=== PATIENT | male | born 1950 | race Caucasian/White ===

== ENCOUNTER 2021-11-02 21:40 | Emergency (ER) | payer OTHER ==
[~2021-11-02] VITALS: Ht 157.5 cm; Wt 74.4 kg
[2021-11-02 21:40] VITALS: BP 150/80
[2021-11-03] MEDS ORDERED: ACETAMINOPHEN 325 MG TAB PO ONE (01:40)
[2021-11-03] MEDS ORDERED: ACETAMINOPHEN 325 MG TAB ONE (01:46)
[2021-11-03] MEDS ORDERED: KETOROLAC 30 MG/ML VIAL IM ONE (02:10)
[2021-11-03 02:29] LABS: BASOPHILS % (AUTO) 0.4 % (0.0-2.0); EOSINOPHILS # (AUTO) 0.2 K/uL (0-0.4); EOSINOPHILS % (AUTO) 2.4 % (0.0-4.0); HEMATOCRIT 37.3 % (36-52); LYMPHOCYTES # (AUTO) 1.2 K/uL (2.0-11.5); LYMPHOCYTES % (AUTO) 14.4 % (20.5-51.1); MEAN CORPUSCULAR HEMOGLOBIN 28 pg (27-31); MEAN CORPUSCULAR HGB CONC 32 g/dL (33-37); MEAN CORPUSCULAR VOLUME 88.2 fL (80-94); MONOCYTES # (AUTO) 0.8 K/uL (0.8-1.0); NEUTROPHILS % (AUTO) 72.8 % (42.2-75.2); PLATELET COUNT (AUTO) 210 K/uL (140-450); RED BLOOD CELL COUNT(AUTO) 4.23 MIL/uL (4.20-6.10); RED CELL DISTRIBUTION WIDTH 14.7 % (11.6-13.7); WHITE BLOOD COUNT (AUTO) 8.3 K/uL (4.8-10.8)
[2021-11-03 02:29] LABS: APPEARANCE,URINE CLEAR (CLEAR); BILIRUBIN,URINE NEGATIVE (NEGATIVE); BLOOD, URINE TRACE-I (NEGATIVE); COLOR,URINE YELLOW (YELLOW); LEUKOCYTE ESTERASE ,URINE NEGATIVE (NEGATIVE); NITRITE, URINE NEGATIVE (NEGATIVE); UGLUCOSE NEGATIVE (NEGATIVE)
[2021-11-03 02:43] LABS: ANION GAP 11.3 (8-16); CARBON DIOXIDE 25.2 mmol/L (21-32); CHLORIDE 110 mmol/L (98-107); CREATININE 1.1 mg/dL (0.6-1.3); GLUCOSE 90 mg/dL (74-106); POTASSIUM 3.5 mmol/L (3.5-5.1); SODIUM SERUM 143 mmol/L (136-145); UREA NITROGEN, BLOOD 27 mg/dL (7-18)
[2021-11-03 02:49] LABS: RBC,URINE 0-5 /HPF (0-5); WBC,URINE 0-5 /HPF (0-5)
[2021-11-03 03:10] VITALS: BP 140/70
== END 2021-11-03 04:30 | disposition home or self-care (01) ==
LOC: MED 21:40
DX: S39.012A Strain of muscle, fascia and tendon of lower back, initial encounter (principal); Z88.2 Allergy status to sulfonamides; W18.30XA Fall on same level, unspecified, initial encounter; Y93.89 Activity, other specified; Y92.89 Other specified places as the place of occurrence of the external cause; Y99.8 Other external cause status
CPT/HCPCS: 36415; 70450; 73060; 80048; 81001; 85025; 99285

== ENCOUNTER 2022-03-23 05:00 | Observation (INO) | payer OTHER ==
[~2022-03-23] VITALS: Ht 154.9 cm; Wt 86.2 kg
--- NOTE | 2022-03-23 05:04 | NUR ---
PT MAKENNA ALS. TAKEN TO BED 10
[2022-03-23] MEDS ORDERED: NACL 0.9% 1,000 ML IV ONE ×2 (05:05→08:40)
--- NOTE | 2022-03-23 05:10 | NUR ---
Dr. Castillo examining patient.
--- NOTE | 2022-03-23 05:12 | NUR ---
Given two orange juice , patient A/O,X4, able to swallow and drink.
--- NOTE | 2022-03-23 05:14 | NUR ---
Given D50% 50 ML IV push stat by Dr. Castillo.
--- NOTE | 2022-03-23 05:22 | NUR ---
X-Ray at bedside.
[2022-03-23] MEDS ORDERED: DEXTROSE 50% 50 ML SYR IVP ONE ×2 (05:28→05:35)
[2022-03-23] MEDS ORDERED: ATOR10TA PO (05:29)
[2022-03-23] MEDS ORDERED: NIFE30TE5 PO (05:29)
[2022-03-23] MEDS ORDERED: GABA250S1 PO (05:29)
[2022-03-23] MEDS ORDERED: ASPI-1822 PO (05:29)
[2022-03-23] MEDS ORDERED: METF-350 PO (05:29)
[2022-03-23] MEDS ORDERED: TAMS0.4C96 PO (05:29)
[2022-03-23] MEDS ORDERED: GLIP5TER PO (05:29)
[2022-03-23 05:30] VITALS: BP 192/69
[2022-03-23] MEDS ORDERED: DEXTROSE 10% 250 ML IV SCH (05:35)
--- NOTE | 2022-03-23 05:37 | NUR ---
72 YO M BIBA FROM HOME WITH C/C OF ALOC. STATES PT ROLLED OUT OF BED PER AND WAS ALTERED. EMS STATES BLOOD SUGAR ON SCENE 37, THEY GAVE 1G OF GLUCAGON IM. ON ARRIVAL PT WAS AWAKE AND ALERT, BLOOD SUGAR 29. PT GIVEN PO ORANGE JUICE, IV 20G TO RT UPPER ARM STARTED, GIVEN D50 IVP. REPEAT BS 198. HX:DM, HTN, HYPERLIDIEMIA RX:GLIPIZIDE, METFORMIN, NIFEDIPINE, ASA, GABAPENTIN, FLOMAX
--- NOTE | 2022-03-23 05:50 | NUR ---
VERBAL ORDER FROM GEORGIANA RODRIGUEZ TORADOL 15MG IVP.
[2022-03-23] MEDS ORDERED: KETOROLAC 15 MG/ML VIAL ONE (05:56)
--- NOTE | 2022-03-23 05:58 | NUR ---
PT C/O OF HIP PAIN AND LEFT LEG CRAMPING. ERMD MADE AWARE.
[2022-03-23 05:59] LABS: BILIRUBIN,URINE NEGATIVE (NEGATIVE); BLOOD, URINE 1+ (NEGATIVE); COLOR,URINE YELLOW (YELLOW); LEUKOCYTE ESTERASE ,URINE TRACE (NEGATIVE); NITRITE, URINE POSITIVE (NEGATIVE); PH,URINE 6.5 (5.0-9.0); UGLUCOSE TRACE (NEGATIVE)
--- NOTE | 2022-03-23 06:04 | NUR ---
UNABLE TO OBTAIN LABS, MULTIPLE NURSES TRIED. LAB MADE AWARE.
--- NOTE | 2022-03-23 06:08 | NUR ---
LAB AT BEDSIDE
[2022-03-23 06:15] LABS: APPEARANCE,URINE SLIGHTLY HAZY (CLEAR)
[2022-03-23 06:17] LABS: RBC,URINE NONE SEEN /HPF (0-5); WBC,URINE 16-25 (MOD) /HPF (0-5)
[2022-03-23] MEDS ORDERED: cefTRIAXone 1,000 MG VIAL ONE (06:32)
--- NOTE | 2022-03-23 07:20 | NUR ---
REPORT GIVEN TO VICTORIANO FLORENCE. TRANSFER OF CARE.
[2022-03-23 08:16] LABS: BASOPHILS % (AUTO) 0.2 % (0.0-2.0); EOSINOPHILS % (AUTO) 0.3 % (0.0-4.0); HEMATOCRIT 37.4 % (36-52); HEMOGLOBIN 12.3 g/dL (12.0-18.0); LYMPHOCYTES # (AUTO) 0.8 K/uL (2.0-11.5); LYMPHOCYTES % (AUTO) 5.3 % (20.5-51.1); MEAN CORPUSCULAR HEMOGLOBIN 30 pg (27-31); MEAN CORPUSCULAR HGB CONC 33 g/dL (33-37); MEAN CORPUSCULAR VOLUME 90.6 fL (80-94); MONOCYTES # (AUTO) 0.9 K/uL (0.8-1.0); MONOCYTES % (AUTO) 6.3 % (1.7-9.3); NEUTROPHILS # (AUTO) 12.8 K/uL (1.8-7.7); NEUTROPHILS % (AUTO) 87.9 % (42.2-75.2); PLATELET COUNT (AUTO) 259 K/uL (140-450); RED BLOOD CELL COUNT(AUTO) 4.13 MIL/uL (4.20-6.10); WHITE BLOOD COUNT (AUTO) 14.5 K/uL (4.8-10.8)
[2022-03-23 08:30] LABS: ANION GAP 13.5 (8-16); ASPARTATE AMINOTRANSFERASE 20 U/L (15-37); CARBON DIOXIDE 27.1 mmol/L (21-32); CHLORIDE 108 mmol/L (98-107); GLUCOSE 108 mg/dL (74-106); POTASSIUM 3.6 mmol/L (3.5-5.1); SODIUM SERUM 145 mmol/L (136-145); TOTAL BILIRUBIN 0.2 mg/dL (0.0-1.0); UREA NITROGEN, BLOOD 23 mg/dL (7-18)
[2022-03-23] MEDS ORDERED: ACETAMINOPHEN 325 MG TAB PO PRN (09:45)
[2022-03-23] MEDS ORDERED: KCL 20 MEQ/WATER INJ PREMIX 200 ML IV PRN (09:45)
[2022-03-23] MEDS ORDERED: HYDROcodone/APAP 5/325 MG 1 TAB TAB PO PRN (09:45)
[2022-03-23] MEDS ORDERED: ONDANSETRON 4 MG/2 ML VIAL IVP PRN (09:45)
[2022-03-23] MEDS ORDERED: MAG SULF 2000 MG/WATER PREMIX 50 ML IV PRN (09:45)
[2022-03-23] MEDS ORDERED: ZOLPIDEM 5 MG TAB PO PRN (09:45)
[2022-03-23] MEDS ORDERED: POTASSIUM CHLORIDE 10 MEQ TABER PO PRN (09:45)
[2022-03-23] MEDS: NIFEdipine 60 MG TABER PO SCH (10:30)
[2022-03-23] MEDS: ATORVASTATIN 80 MG TAB PO SCH (10:30)
--- NOTE | 2022-03-23 20:00 | NUR ---
Patient has skin tear left hand, not bleeding, covered with gauze. Printer not working to print wound picture.
--- NOTE | 2022-03-23 20:07 | NUR ---
Patient lying in bed, A/Ox4, chest rise and fall symmetrical, no c/o pain or s/s of discomfort. Addendum: 03/23/22 at 2226 by [email or web address] Patient lying in bed, A/Ox3, chest rise and fall symmetrical, no c/o pain or s/s of distress.
--- NOTE | 2022-03-23 22:26 | NUR ---
Patient lying in bed, A/Ox3, chest rise and fall symmetrical, no c/o pain or s/s of distress.
--- NOTE | 2022-03-24 00:58 | NUR ---
Patient lying in bed, A/Ox3, chest rise and fall symmetrical, no c/o pain or s/s of distress.
--- NOTE | 2022-03-24 02:30 | NUR ---
Patient lying in bed, A/Ox3, chest rise and fall symmetrical, no c/o pain or s/s of distress.
--- NOTE | 2022-03-24 04:01 | NUR ---
Patient lying in bed, A/Ox3, chest rise and fall symmetrical, no c/o pain or s/s of distress.
--- NOTE | 2022-03-24 06:20 | NUR ---
Patient lying in bed, A/Ox3, chest rise and fall symmetrical, no c/o pain or s/s of distress.
--- NOTE | 2022-03-24 07:09 | NUR ---
Patient refused lab draw.
--- NOTE | 2022-03-24 07:10 | NUR ---
Change of shift report given to AM shift nurse Belle PASTRANA. AM shift nurse Belle RN verbalized understanding of report, no further questions.
[2022-03-24] MEDS ORDERED: TAMSULOSIN 0.4 MG CAP PO SCH (08:30)
--- NOTE | 2022-03-24 08:30 | NUR ---
Patient will be admitted to care of DR DEL VALLE. Admited to TELEMETRY. Will go to room ICU 6 FOR HOUSE CONVEIENCE. Belongings list completed. Report to VICTORIANO.
--- NOTE | 2022-03-24 08:35 | NUR ---
Admission Pt AOx3, in no signs of distress on room air. Pt states no pain at this time. IV site intact, patent, no infiltration noted. Situated pt to bed and call light.
--- NOTE | 2022-03-24 08:54 | NUR ---
Attempted to call x2 pt's Deysi Alarcon to inform of admission. Unable to leave voicemail.
[2022-03-24] MEDS ORDERED: ENOXAPARIN 40 MG/0.4 ML SYR SUBQ SCH (09:00)
[2022-03-24] MEDS ORDERED: ASPIRIN 81 MG TAB.CHEW PO SCH (09:00)
--- NOTE | 2022-03-24 09:37 | NUR ---
PATIENT HAS BEEN SCREENED AND CATEGORIZED MODERATE NUTRITION RISK. PATIENT WILL BE SEEN WITHIN 3-5 DAYS OF ADMISSION. 03/26/2212/12/[address]
[2022-03-24 09:51] LABS: BASOPHILS # (AUTO) 0.1 K/uL (0.00-0.22); BASOPHILS % (AUTO) 0.7 % (0.0-2.0); EOSINOPHILS # (AUTO) 0.5 K/uL (0-0.4); EOSINOPHILS % (AUTO) 5.1 % (0.0-4.0); HEMATOCRIT 39.2 % (36-52); HEMOGLOBIN 12.9 g/dL (12.0-18.0); LYMPHOCYTES # (AUTO) 0.9 K/uL (2.0-11.5); LYMPHOCYTES % (AUTO) 9.1 % (20.5-51.1); MEAN CORPUSCULAR HEMOGLOBIN 30 pg (27-31); MEAN CORPUSCULAR HGB CONC 33 g/dL (33-37); MEAN CORPUSCULAR VOLUME 90.7 fL (80-94); MONOCYTES # (AUTO) 0.9 K/uL (0.8-1.0); MONOCYTES % (AUTO) 9.1 % (1.7-9.3); NEUTROPHILS # (AUTO) 7.8 K/uL (1.8-7.7); PLATELET COUNT (AUTO) 253 K/uL (140-450); RED BLOOD CELL COUNT(AUTO) 4.32 MIL/uL (4.20-6.10); RED CELL DISTRIBUTION WIDTH 13.7 % (11.6-13.7); WHITE BLOOD COUNT (AUTO) 10.3 K/uL (4.8-10.8)
--- NOTE | 2022-03-24 10:00 | NUR ---
Spoke with pt's Deysi Alarcon regarding pt's status and updates, per pt's request.
[2022-03-24 10:06] LABS: CARBON DIOXIDE 25.9 mmol/L (21-32); CHLORIDE 109 mmol/L (98-107); GLUCOSE 127 mg/dL (74-106); POTASSIUM 3.9 mmol/L (3.5-5.1); SODIUM SERUM 144 mmol/L (136-145); UREA NITROGEN, BLOOD 21 mg/dL (7-18)
[2022-03-24] MEDS ORDERED: GLIP5TAB13 PO (10:14)
[2022-03-24] MEDS ORDERED: NIFE60TA39 PO (10:14)
[2022-03-24] MEDS ORDERED: ASPI81CT95 PO (10:14)
[2022-03-24] MEDS ORDERED: CIPR250T6 PO ×2 (10:19→10:36)
[2022-03-24] MEDS: ATORVASTATIN 80 MG TAB PO SCH (10:21)
[2022-03-24] MEDS: NIFEdipine 60 MG TABER PO SCH (10:22)
[2022-03-24 13:19] VITALS: BP 152/80
--- NOTE | 2022-03-24 13:40 | NUR ---
Discharge Pt seen and medically cleared by Dr. Shipley. Pt given discharge instructions including prescriptions. Pt verbalize understanding. Removed IV catheter, tip intact, bleeding controlled. Pt states to dispose of soiled and cut clothes, new clothes given to pt for discharge. Informed pt's Deysi regarding discharge and need for assistance when pt returns home. Pt also refused to receive vaccinations despite education and verbalizes understanding. Pt brought home by auto.
== END 2022-03-24 14:00 | disposition home or self-care (01) ==
LOC: MED 05:00 → MTU 09:47 → MIC 03-24 06:25
PROVIDERS: ADMIT Internal Medicine; ATTEND Internal Medicine
DX: A41.9 Sepsis, unspecified organism (principal); Z20.822 Contact with and (suspected) exposure to COVID-19; R65.20 Severe sepsis without septic shock; N39.0 Urinary tract infection, site not specified; E11.649 Type 2 diabetes mellitus with hypoglycemia without coma; Z79.899 Other long term (current) drug therapy
CPT/HCPCS: 36415; 71045; 80048; 80053; 81001; 83605; 83735; 84484; 85025; 87040; 87081; 87086; 87426; 87804; 93005; 96361; 96365; 96375; 99291; G0378; J0696; J1885; Q0092; J1650; J7060

== ENCOUNTER 2022-08-10 10:08 | Emergency (ER) | payer OTHER ==
[~2022-08-10] VITALS: Ht 162.6 cm; Wt 81.6 kg
[~2022-08-10 10:08] MED LIST: CIPR250T6 PO; GLIP5TAB13 PO; METF-350 PO; NIFE60TA39 PO; TAMS0.4C96 PO
--- NOTE | 2022-08-10 10:08 | NUR ---
BIBA BLS TO ER BED 8
[2022-08-10 10:09] VITALS: BP 179/88
--- NOTE | 2022-08-10 10:47 | NUR ---
FIRST CONTACT. REPORT FROM ADARSH PASTRANA.
--- NOTE | 2022-08-10 11:09 | NUR ---
RETURNED FROM RADIOLOGY, AWAIT FURTHER ORDERS. PT STABLE. NAD. VSS.
--- NOTE | 2022-08-10 12:12 | NUR ---
MEAL TRAY REQUESTED AND PROVIDED.
--- NOTE | 2022-08-10 13:30 | NUR ---
STEP DAUGHTER ARRIVED. THOROUGH EXPLAINATION OF CARE PLAN IN ED GIVEN. DAUGHTER STATES PT NORMALLY WALKS W/ WALKER. ASSISTED PT IN PLACING CLEAN CLOTHES ON AND STANDING UP W/ WALKER. PT ABLE TO SLOWLY MOVE TO W/C. ESCORTED TO WAITING VEHICLE BY RASHID PASTRANA. PT AGREED W/DC PLAN. SPOKE W/ REGARDING CARE IN ED W/ PT'S PERMISSION.
[2022-08-10 13:45] VITALS: BP 149/71
== END 2022-08-10 13:45 | disposition home or self-care (01) ==
LOC: MED 10:08
DX: H11.001 Unspecified pterygium of right eye (principal); E11.9 Type 2 diabetes mellitus without complications; I10 Essential (primary) hypertension; Z98.890 Other specified postprocedural states; Z79.899 Other long term (current) drug therapy; Z79.2 Long term (current) use of antibiotics; Z88.2 Allergy status to sulfonamides
CPT/HCPCS: 70450; 70486; 99284

== ENCOUNTER 2022-11-19 14:10 | Inpatient (IN) | payer OTHER ==
[~2022-11-19] VITALS: Ht 157.5 cm; Wt 80.7 kg
[2022-11-19 14:24] VITALS: BP 138/72; PULSE 90; RESP 20; TEMP 98.8; O2SAT 99
[2022-11-19 14:35] VITALS: O2SAT 99
[2022-11-19 15:05] LABS: HEMATOCRIT 39.7 % (36-52); HEMOGLOBIN 13.3 g/dL (12.0-18.0); MEAN CORPUSCULAR HEMOGLOBIN 30 pg (27-31); MEAN CORPUSCULAR HGB CONC 33 g/dL (33-37); MEAN CORPUSCULAR VOLUME 90.6 fL (80-94); PLATELET COUNT (AUTO) 248 K/uL (140-450); RED BLOOD CELL COUNT(AUTO) 4.38 MIL/uL (4.20-6.10); RED CELL DISTRIBUTION WIDTH 14.4 % (11.6-13.7); WHITE BLOOD COUNT (AUTO) 8.8 K/uL (4.8-10.8)
[2022-11-19 15:18] LABS: ALANINE AMINOTRANSFERASE 22 U/L (12-78); ALBUMIN 3.6 g/dL (3.4-5.0); ALKALINE PHOSPHATASE 85 U/L (50-136); ANION GAP 14.1 (8-16); ASPARTATE AMINOTRANSFERASE 20 U/L (15-37); CALCIUM 8.6 mg/dL (8.5-10.1); CARBON DIOXIDE 27.3 mmol/L (21-32); CHLORIDE 106 mmol/L (98-107); GLUCOSE 105 mg/dL (74-106); POTASSIUM 3.4 mmol/L (3.5-5.1); SODIUM SERUM 144 mmol/L (136-145); TOTAL BILIRUBIN 0.3 mg/dL (0.0-1.0); TOTAL PROTEIN, SERUM 6.6 g/dL (6.4-8.2); UREA NITROGEN, BLOOD 17 mg/dL (7-18)
[2022-11-19 15:23] LABS: LIPASE 58 U/L (73-393)
[2022-11-19 15:26] LABS: BASOPHILS % (MANUAL) 0 % (0-2); EOSINOPHILS % (MANUAL) 0 % (0-4); LYMPHOCYTES % (MANUAL) 19 % (20-46); MONOCYTES % (MANUAL) 6 % (5-12); SMUDGE CELLS FEW
[2022-11-19 16:41] VITALS: O2SAT 96
[2022-11-19] MEDS ORDERED: ACET-10509 PO (18:20)
[2022-11-19 18:55] VITALS: O2SAT 97
[2022-11-19] MEDS ORDERED: POTASSIUM CHLORIDE 10 MEQ TABER PO PRN (21:20)
[2022-11-19] MEDS ORDERED: KCL 20 MEQ IN 100 mL PREMIX 200 ML IV PRN (21:20)
[2022-11-19] MEDS ORDERED: HYDROcodone/APAP 5/325 MG 1 TAB TAB PO PRN (21:20)
[2022-11-19] MEDS ORDERED: MAG SULF 2000 MG/WATER PREMIX 50 ML IV PRN (21:20)
[2022-11-19] MEDS ORDERED: ONDANSETRON 4 MG/2 ML VIAL IVP PRN (21:20)
[2022-11-19] MEDS ORDERED: MORPHINE SULFATE 4 MG/ML SYR IVP PRN (21:20)
[2022-11-19 22:41] VITALS: BP 143/62; PULSE 61; RESP 18; TEMP 96.8; O2SAT 95
[2022-11-19] MEDS: ACETAMINOPHEN 325 MG TAB PO PRN (22:59)
[2022-11-20 04:00] VITALS: BP 144/75; PULSE 57; RESP 18; TEMP 96.1; O2SAT 97
[2022-11-20 08:00] VITALS: BP 140/71; PULSE 60; RESP 17; RESP 18; TEMP 97.8; O2SAT 97; O2SAT 98
[2022-11-20] MEDS: DOCUSATE SODIUM 100 MG GELCAP PO SCH (08:25)
[2022-11-20] MEDS: ENOXAPARIN 40 MG/0.4 ML SYR SUBQ SCH (08:26)
[2022-11-20 08:50] LABS: ANION GAP 10.2 (8-16); CALCIUM 8.5 mg/dL (8.5-10.1); CARBON DIOXIDE 29.5 mmol/L (21-32); CHLORIDE 109 mmol/L (98-107); GLUCOSE 104 mg/dL (74-106); POTASSIUM 3.7 mmol/L (3.5-5.1); SODIUM SERUM 145 mmol/L (136-145); UREA NITROGEN, BLOOD 19 mg/dL (7-18)
[2022-11-20 08:59] LABS: BASOPHILS # (AUTO) 0.1 K/uL (0.00-0.22); BASOPHILS % (AUTO) 0.6 % (0.0-2.0); EOSINOPHILS # (AUTO) 0.3 K/uL (0-0.4); EOSINOPHILS % (AUTO) 3.5 % (0.0-4.0); HEMATOCRIT 39.9 % (36-52); HEMOGLOBIN 13.2 g/dL (12.0-18.0); LYMPHOCYTES # (AUTO) 1.5 K/uL (2.0-11.5); LYMPHOCYTES % (AUTO) 16.4 % (20.5-51.1); MEAN CORPUSCULAR HEMOGLOBIN 30 pg (27-31); MEAN CORPUSCULAR HGB CONC 33 g/dL (33-37); MEAN CORPUSCULAR VOLUME 91.8 fL (80-94); MONOCYTES % (AUTO) 10.6 % (1.7-9.3); NEUTROPHILS # (AUTO) 6.2 K/uL (1.8-7.7); NEUTROPHILS % (AUTO) 68.9 % (42.2-75.2); PLATELET COUNT (AUTO) 239 K/uL (140-450); RED BLOOD CELL COUNT(AUTO) 4.35 MIL/uL (4.20-6.10); RED CELL DISTRIBUTION WIDTH 14.2 % (11.6-13.7)
[2022-11-20 12:31] LABS: APPEARANCE,URINE CLEAR (CLEAR); BILIRUBIN,URINE NEGATIVE (NEGATIVE); BLOOD, URINE NEGATIVE (NEGATIVE); COLOR,URINE YELLOW (YELLOW); LEUKOCYTE ESTERASE ,URINE NEGATIVE (NEGATIVE); NITRITE, URINE NEGATIVE (NEGATIVE); PROTEIN,URINE 1+ (NEGATIVE); UGLUCOSE NEGATIVE (NEGATIVE); UROBILINOGEN,URINE 0.2 EU/dL (0.2 - 1)
[2022-11-20 16:00] VITALS: BP 148/76; PULSE 63; RESP 18; TEMP 98.9; O2SAT 98
[2022-11-20] MEDS: BLOOD GLUCOSE MONITORING 1 DEV DEV FS SCH ×2 (16:58→21:31)
[2022-11-20] MEDS: INSULIN LISPRO SLIDING SCALE 100 UNITS/ML VIAL SUBQ PRN (17:09)
[2022-11-20 20:00] VITALS: BP 158/63; PULSE 57; RESP 20; TEMP 97.7; O2SAT 96
[2022-11-21 04:00] VITALS: BP 175/77; PULSE 61; RESP 18; TEMP 97.4; O2SAT 95
[2022-11-21] MEDS ORDERED: hydrALAZINE 10 MG TAB PO PRN (04:55)
[2022-11-21 05:17] LABS: BASOPHILS % (AUTO) 0.3 % (0.0-2.0); EOSINOPHILS # (AUTO) 0.4 K/uL (0-0.4); EOSINOPHILS % (AUTO) 3.9 % (0.0-4.0); HEMATOCRIT 39.1 % (36-52); HEMOGLOBIN 12.9 g/dL (12.0-18.0); LYMPHOCYTES # (AUTO) 1.3 K/uL (2.0-11.5); LYMPHOCYTES % (AUTO) 13.1 % (20.5-51.1); MEAN CORPUSCULAR HEMOGLOBIN 30 pg (27-31); MEAN CORPUSCULAR HGB CONC 33 g/dL (33-37); MEAN CORPUSCULAR VOLUME 91.5 fL (80-94); MONOCYTES % (AUTO) 10.3 % (1.7-9.3); NEUTROPHILS # (AUTO) 7.2 K/uL (1.8-7.7); NEUTROPHILS % (AUTO) 72.4 % (42.2-75.2); PLATELET COUNT (AUTO) 251 K/uL (140-450); RED BLOOD CELL COUNT(AUTO) 4.27 MIL/uL (4.20-6.10); RED CELL DISTRIBUTION WIDTH 14.1 % (11.6-13.7); WHITE BLOOD COUNT (AUTO) 9.9 K/uL (4.8-10.8)
[2022-11-21 05:29] LABS: ANION GAP 12.4 (8-16); CALCIUM 8.3 mg/dL (8.5-10.1); CARBON DIOXIDE 27.4 mmol/L (21-32); CHLORIDE 106 mmol/L (98-107); CREATININE 1.1 mg/dL (0.6-1.3); GLUCOSE 126 mg/dL (74-106); POTASSIUM 3.8 mmol/L (3.5-5.1); SODIUM SERUM 142 mmol/L (136-145); UREA NITROGEN, BLOOD 23 mg/dL (7-18)
[2022-11-21] MEDS: BLOOD GLUCOSE MONITORING 1 DEV DEV FS SCH ×4 (06:42→21:02)
[2022-11-21 08:00] VITALS: BP 161/87; PULSE 52; RESP 16; TEMP 97.1; O2SAT 96
[2022-11-21] MEDS: ENOXAPARIN 40 MG/0.4 ML SYR SUBQ SCH (09:19)
[2022-11-21] MEDS: TAMSULOSIN 0.4 MG CAP PO SCH (09:21)
[2022-11-21] MEDS: NIFEdipine 60 MG TABER PO SCH (09:21)
[2022-11-21] MEDS: DOCUSATE SODIUM 100 MG GELCAP PO SCH (10:18)
[2022-11-21 16:00] VITALS: BP 133/64; PULSE 78; RESP 17; TEMP 97.6; O2SAT 93
[2022-11-21 20:00] VITALS: BP 141/86; PULSE 79; RESP 20; TEMP 98.1; O2SAT 93
[2022-11-21] MEDS: INSULIN LISPRO SLIDING SCALE 100 UNITS/ML VIAL SUBQ PRN (20:56)
[2022-11-22] MEDS: ZOLPIDEM 5 MG TAB PO PRN (00:24)
[2022-11-22 04:00] VITALS: BP 151/85; PULSE 91; RESP 19; TEMP 97.6; O2SAT 93
[2022-11-22] MEDS: BLOOD GLUCOSE MONITORING 1 DEV DEV FS SCH ×4 (06:31→21:57)
[2022-11-22] MEDS: INSULIN LISPRO SLIDING SCALE 100 UNITS/ML VIAL SUBQ PRN ×3 (06:36→22:00)
[2022-11-22 08:00] VITALS: BP 145/73; PULSE 79; RESP 17; TEMP 98.5; O2SAT 97
[2022-11-22 08:09] LABS: BASOPHILS # (AUTO) 0.1 K/uL (0.00-0.22); BASOPHILS % (AUTO) 0.6 % (0.0-2.0); EOSINOPHILS # (AUTO) 0.3 K/uL (0-0.4); EOSINOPHILS % (AUTO) 3.1 % (0.0-4.0); HEMATOCRIT 45.8 % (36-52); HEMOGLOBIN 15.2 g/dL (12.0-18.0); LYMPHOCYTES % (AUTO) 9.4 % (20.5-51.1); MEAN CORPUSCULAR HEMOGLOBIN 30 pg (27-31); MEAN CORPUSCULAR HGB CONC 33 g/dL (33-37); MEAN CORPUSCULAR VOLUME 91.3 fL (80-94); MONOCYTES % (AUTO) 9.3 % (1.7-9.3); NEUTROPHILS # (AUTO) 8.2 K/uL (1.8-7.7); NEUTROPHILS % (AUTO) 77.6 % (42.2-75.2); PLATELET COUNT (AUTO) 270 K/uL (140-450); RED BLOOD CELL COUNT(AUTO) 5.02 MIL/uL (4.20-6.10); RED CELL DISTRIBUTION WIDTH 14.4 % (11.6-13.7); WHITE BLOOD COUNT (AUTO) 10.6 K/uL (4.8-10.8)
[2022-11-22 08:17] LABS: ANION GAP 12.1 (8-16); CALCIUM 8.8 mg/dL (8.5-10.1); CHLORIDE 105 mmol/L (98-107); CREATININE 0.9 mg/dL (0.6-1.3); GLUCOSE 130 mg/dL (74-106); POTASSIUM 4.1 mmol/L (3.5-5.1); SODIUM SERUM 142 mmol/L (136-145); UREA NITROGEN, BLOOD 17 mg/dL (7-18)
[2022-11-22] MEDS: TAMSULOSIN 0.4 MG CAP PO SCH (09:16)
[2022-11-22] MEDS: DOCUSATE SODIUM 100 MG GELCAP PO SCH (09:16)
[2022-11-22] MEDS: NIFEdipine 60 MG TABER PO SCH (09:16)
[2022-11-22] MEDS: ENOXAPARIN 40 MG/0.4 ML SYR SUBQ SCH (09:18)
[2022-11-22 16:00] VITALS: BP 101/57; PULSE 80; RESP 18; TEMP 98.8; O2SAT 93
[2022-11-22 20:00] VITALS: BP 105/69; PULSE 75; RESP 18; TEMP 97.9; O2SAT 100
[2022-11-23] MEDS: LORazepam 1 MG TAB PO PRN (01:18)
[2022-11-23 04:00] VITALS: BP 130/78; PULSE 73; RESP 18; TEMP 97.8; O2SAT 98
[2022-11-23] MEDS: ACETAMINOPHEN 325 MG TAB PO PRN ×2 (04:46→15:21)
[2022-11-23 05:14] LABS: BASOPHILS # (AUTO) 0.1 K/uL (0.00-0.22); BASOPHILS % (AUTO) 0.8 % (0.0-2.0); EOSINOPHILS # (AUTO) 0.7 K/uL (0-0.4); EOSINOPHILS % (AUTO) 6.5 % (0.0-4.0); HEMATOCRIT 44.8 % (36-52); HEMOGLOBIN 14.9 g/dL (12.0-18.0); LYMPHOCYTES # (AUTO) 1.5 K/uL (2.0-11.5); LYMPHOCYTES % (AUTO) 13.3 % (20.5-51.1); MEAN CORPUSCULAR HEMOGLOBIN 30 pg (27-31); MEAN CORPUSCULAR HGB CONC 33 g/dL (33-37); MEAN CORPUSCULAR VOLUME 91.5 fL (80-94); MONOCYTES # (AUTO) 1.2 K/uL (0.8-1.0); NEUTROPHILS # (AUTO) 7.8 K/uL (1.8-7.7); NEUTROPHILS % (AUTO) 68.4 % (42.2-75.2); PLATELET COUNT (AUTO) 282 K/uL (140-450); RED CELL DISTRIBUTION WIDTH 14.2 % (11.6-13.7); WHITE BLOOD COUNT (AUTO) 11.4 K/uL (4.8-10.8)
[2022-11-23 05:38] LABS: ANION GAP 15.2 (8-16); CALCIUM 8.9 mg/dL (8.5-10.1); CARBON DIOXIDE 25.9 mmol/L (21-32); CHLORIDE 104 mmol/L (98-107); GLUCOSE 138 mg/dL (74-106); POTASSIUM 4.1 mmol/L (3.5-5.1); SODIUM SERUM 141 mmol/L (136-145); UREA NITROGEN, BLOOD 27 mg/dL (7-18)
[2022-11-23] MEDS: BLOOD GLUCOSE MONITORING 1 DEV DEV FS SCH ×4 (06:33→21:00)
[2022-11-23 08:00] VITALS: BP 149/79; PULSE 66; RESP 18; TEMP 98.3; O2SAT 98
[2022-11-23] MEDS: DOCUSATE SODIUM 100 MG GELCAP PO SCH (08:06)
[2022-11-23] MEDS: NIFEdipine 60 MG TABER PO SCH (08:07)
[2022-11-23] MEDS: TAMSULOSIN 0.4 MG CAP PO SCH (08:07)
[2022-11-23] MEDS: ENOXAPARIN 40 MG/0.4 ML SYR SUBQ SCH (08:10)
[2022-11-23] MEDS: INSULIN LISPRO SLIDING SCALE 100 UNITS/ML VIAL SUBQ PRN (12:30)
[2022-11-23 16:00] VITALS: BP 118/69; PULSE 79; RESP 18; TEMP 98.9; O2SAT 97
[2022-11-23 20:00] VITALS: BP 121/71; PULSE 81; RESP 17; TEMP 98.3; O2SAT 97
[2022-11-23] MEDS: guaiFENesin 600 MG TABER PO SCH (21:01)
[2022-11-23] MEDS: ZOLPIDEM 5 MG TAB PO PRN (21:02)
[2022-11-24 04:00] VITALS: BP 132/72; PULSE 72; RESP 18; TEMP 96.8; O2SAT 94
[2022-11-24] MEDS: ACETAMINOPHEN 325 MG TAB PO PRN (04:14)
[2022-11-24] MEDS: LORazepam 1 MG TAB PO PRN (04:57)
[2022-11-24] MEDS: BLOOD GLUCOSE MONITORING 1 DEV DEV FS SCH ×4 (07:30→20:23)
[2022-11-24 08:00] VITALS: BP 117/70; PULSE 66; RESP 17; TEMP 97; O2SAT 100
[2022-11-24] MEDS: DOCUSATE SODIUM 100 MG GELCAP PO SCH (08:52)
[2022-11-24] MEDS: guaiFENesin 600 MG TABER PO SCH ×2 (08:52→20:20)
[2022-11-24] MEDS: TAMSULOSIN 0.4 MG CAP PO SCH (08:53)
[2022-11-24] MEDS: NIFEdipine 60 MG TABER PO SCH (08:54)
[2022-11-24] MEDS: ENOXAPARIN 40 MG/0.4 ML SYR SUBQ SCH (09:00)
[2022-11-24 09:04] LABS: BASOPHILS # (AUTO) 0.1 K/uL (0.00-0.22); BASOPHILS % (AUTO) 1.3 % (0.0-2.0); EOSINOPHILS # (AUTO) 0.7 K/uL (0-0.4); EOSINOPHILS % (AUTO) 7.3 % (0.0-4.0); HEMATOCRIT 42.1 % (36-52); LYMPHOCYTES # (AUTO) 1.6 K/uL (2.0-11.5); LYMPHOCYTES % (AUTO) 17.6 % (20.5-51.1); MEAN CORPUSCULAR HEMOGLOBIN 31 pg (27-31); MEAN CORPUSCULAR HGB CONC 33 g/dL (33-37); MONOCYTES % (AUTO) 10.4 % (1.7-9.3); NEUTROPHILS # (AUTO) 5.9 K/uL (1.8-7.7); NEUTROPHILS % (AUTO) 63.4 % (42.2-75.2); PLATELET COUNT (AUTO) 265 K/uL (140-450); RED BLOOD CELL COUNT(AUTO) 4.58 MIL/uL (4.20-6.10); RED CELL DISTRIBUTION WIDTH 14.7 % (11.6-13.7); WHITE BLOOD COUNT (AUTO) 9.3 K/uL (4.8-10.8)
[2022-11-24 09:06] LABS: CALCIUM 8.5 mg/dL (8.5-10.1); CARBON DIOXIDE 27.2 mmol/L (21-32); CHLORIDE 105 mmol/L (98-107); GLUCOSE 146 mg/dL (74-106); POTASSIUM 4.2 mmol/L (3.5-5.1); SODIUM SERUM 141 mmol/L (136-145); UREA NITROGEN, BLOOD 31 mg/dL (7-18)
[2022-11-24] MEDS: INSULIN LISPRO SLIDING SCALE 100 UNITS/ML VIAL SUBQ PRN ×3 (11:03→20:28)
[2022-11-24 16:00] VITALS: BP 131/60; PULSE 73; RESP 19; TEMP 98.8; O2SAT 95
[2022-11-24 20:00] VITALS: BP 120/57; PULSE 77; RESP 17; TEMP 97.6; O2SAT 92; O2SAT 93
[2022-11-25 04:00] VITALS: BP 120/60; PULSE 69; RESP 17; TEMP 97.8; O2SAT 95
[2022-11-25] MEDS: BLOOD GLUCOSE MONITORING 1 DEV DEV FS SCH ×3 (06:49→16:56)
[2022-11-25] MEDS: INSULIN LISPRO SLIDING SCALE 100 UNITS/ML VIAL SUBQ PRN ×2 (06:50→17:01)
[2022-11-25 08:00] VITALS: PULSE 67; RESP 18; O2SAT 95
[2022-11-25] MEDS: guaiFENesin 600 MG TABER PO SCH (08:12)
[2022-11-25] MEDS: NIFEdipine 60 MG TABER PO SCH (08:12)
[2022-11-25] MEDS: TAMSULOSIN 0.4 MG CAP PO SCH (08:13)
[2022-11-25] MEDS: ENOXAPARIN 40 MG/0.4 ML SYR SUBQ SCH (08:13)
[2022-11-25] MEDS: DOCUSATE SODIUM 100 MG GELCAP PO SCH (08:13)
[2022-11-25 12:00] VITALS: BP 131/60; PULSE 73; RESP 19; TEMP 98.8; O2SAT 95
[2022-11-25 20:03] VITALS: BP 136/62; PULSE 78; RESP 18; TEMP 98.8
== END 2022-11-25 20:17 | DRG 641 ==
LOC: MED 14:10 → MMU 21:19 → INTOOBSV 21:19 → MTU 22:09 → OBSVTOIN 11-20 13:00
PROVIDERS: ADMIT Internal Medicine; ATTEND Internal Medicine
DX: E87.6 Hypokalemia (principal); R53.1 Weakness; I10 Essential (primary) hypertension; E11.9 Type 2 diabetes mellitus without complications; E78.5 Hyperlipidemia, unspecified; N40.0 Benign prostatic hyperplasia without lower urinary tract symptoms; Z86.73 Personal history of transient ischemic attack (TIA), and cerebral infarction without residual deficits; Z88.2 Allergy status to sulfonamides
CPT/HCPCS: 99285; G0378; 36415; 70450; 71045; 80048; 80053; 81003; 82948; 83690; 83735; 83880; 84484; 85025; 87081; 97110; 97112; 97116; 97530; J1650; J1815; Q0092

== ENCOUNTER 2023-05-25 15:19 | Inpatient (IN) | payer OTHER ==
[~2023-05-25] VITALS: Ht 160 cm; Wt 99.8 kg
[~2023-05-25 15:19] MED LIST changes: +ACET-10509 PO; -GLIP5TAB13 PO; +GLIP5TAB22 PO
[2023-05-25 15:26] VITALS: BP 158/90; PULSE 88; RESP 18; TEMP 98.3; O2SAT 96
[2023-05-25 16:32] LABS: BASOPHILS % (AUTO) 0.4 % (0.0-2.0); EOSINOPHILS # (AUTO) 0.1 K/uL (0-0.4); EOSINOPHILS % (AUTO) 1.4 % (0.0-4.0); HEMOGLOBIN 13.9 g/dL (12.0-18.0); LYMPHOCYTES # (AUTO) 0.7 K/uL (2.0-11.5); LYMPHOCYTES % (AUTO) 7.8 % (20.5-51.1); MEAN CORPUSCULAR HEMOGLOBIN 31 pg (27-31); MEAN CORPUSCULAR HGB CONC 34 g/dL (33-37); MEAN CORPUSCULAR VOLUME 90.2 fL (80-94); MONOCYTES # (AUTO) 0.8 K/uL (0.8-1.0); MONOCYTES % (AUTO) 9.5 % (1.7-9.3); NEUTROPHILS # (AUTO) 6.9 K/uL (1.8-7.7); NEUTROPHILS % (AUTO) 80.9 % (42.2-75.2); PLATELET COUNT (AUTO) 226 K/uL (140-450); RED BLOOD CELL COUNT(AUTO) 4.55 MIL/uL (4.20-6.10); RED CELL DISTRIBUTION WIDTH 13.8 % (11.6-13.7); WHITE BLOOD COUNT (AUTO) 8.5 K/uL (4.8-10.8)
[2023-05-25 16:46] LABS: ANION GAP 14.6 (8-16); CALCIUM 9.1 mg/dL (8.5-10.1); CARBON DIOXIDE 26.1 mmol/L (21-32); CHLORIDE 104 mmol/L (98-107); GLUCOSE 76 mg/dL (74-106); POTASSIUM 3.7 mmol/L (3.5-5.1); SODIUM SERUM 141 mmol/L (136-145); UREA NITROGEN, BLOOD 17 mg/dL (7-18)
[2023-05-25 16:50] LABS: INR 1.09 (0.8-1.2); PARTIAL THROMBOPLASTIN TIME 28.5 secs (22-35.6); PROTHROMBIN TIME 11.4 secs (10.8-13.4)
[2023-05-25] MEDS ORDERED: ONDANSETRON 4 MG/2 ML VIAL IVP PRN (20:55)
[2023-05-25] MEDS ORDERED: POTASSIUM CHLORIDE 10 MEQ TABER PO PRN (20:55)
[2023-05-25 22:50] VITALS: PULSE 53; PULSE 58; RESP 18; O2SAT 97
[2023-05-25] MEDS: ACETAMINOPHEN 325 MG TAB PO PRN (23:24)
[2023-05-26 04:00] VITALS: BP 157/61; PULSE 54; RESP 18; TEMP 97.2; O2SAT 99
[2023-05-26 08:00] VITALS: BP 140/105; PULSE 53; PULSE 58; RESP 20; TEMP 97; O2SAT 98
[2023-05-26 08:29] LABS: BASOPHILS % (AUTO) 0.5 % (0.0-2.0); EOSINOPHILS # (AUTO) 0.4 K/uL (0-0.4); HEMATOCRIT 38.1 % (36-52); HEMOGLOBIN 12.8 g/dL (12.0-18.0); LYMPHOCYTES # (AUTO) 1.2 K/uL (2.0-11.5); LYMPHOCYTES % (AUTO) 15.7 % (20.5-51.1); MEAN CORPUSCULAR HEMOGLOBIN 30 pg (27-31); MEAN CORPUSCULAR HGB CONC 34 g/dL (33-37); MEAN CORPUSCULAR VOLUME 90.2 fL (80-94); MONOCYTES # (AUTO) 0.8 K/uL (0.8-1.0); MONOCYTES % (AUTO) 10.4 % (1.7-9.3); NEUTROPHILS # (AUTO) 5.3 K/uL (1.8-7.7); NEUTROPHILS % (AUTO) 68.4 % (42.2-75.2); PLATELET COUNT (AUTO) 217 K/uL (140-450); RED BLOOD CELL COUNT(AUTO) 4.22 MIL/uL (4.20-6.10); RED CELL DISTRIBUTION WIDTH 13.9 % (11.6-13.7); WHITE BLOOD COUNT (AUTO) 7.8 K/uL (4.8-10.8)
[2023-05-26 08:52] LABS: ANION GAP 10.8 (8-16); CALCIUM 8.5 mg/dL (8.5-10.1); CARBON DIOXIDE 27.8 mmol/L (21-32); CHLORIDE 106 mmol/L (98-107); CREATININE 0.9 mg/dL (0.6-1.3); GLUCOSE 82 mg/dL (74-106); POTASSIUM 3.6 mmol/L (3.5-5.1); SODIUM SERUM 141 mmol/L (136-145); UREA NITROGEN, BLOOD 19 mg/dL (7-18)
[2023-05-26 08:54] LABS: MAGNESIUM 1.6 mg/dL (1.8-2.4); PHOSPHORUS 4.2 mg/dL (2.5-4.9)
[2023-05-26] MEDS: ASPIRIN 81 MG TAB.CHEW PO SCH (09:37)
[2023-05-26] MEDS: ATORVASTATIN 20 MG TAB PO SCH (09:37)
[2023-05-26 12:00] VITALS: BP 136/64; PULSE 55; PULSE 57; RESP 20; TEMP 97; O2SAT 98
[2023-05-26] MEDS: MAGNESIUM OXIDE 400 MG TAB PO PRN (14:26)
[2023-05-26 16:00] VITALS: BP 142/67; PULSE 57; PULSE 66; RESP 20; TEMP 97.7; O2SAT 97
[2023-05-26 20:00] VITALS: BP 154/94; PULSE 57; PULSE 58; RESP 18; RESP 20; TEMP 97.9; O2SAT 95; O2SAT 98
[2023-05-27] VITALS (7 sets, daily range): BP systolic 116–158; BP diastolic 58–94; PULSE 50–97; RESP 16–18; TEMP 97.1–98; O2SAT 95–97
[2023-05-27] MEDS: hydrALAZINE 25 MG TAB PO PRN (00:27)
[2023-05-27 12:24] LABS: BASOPHILS % (AUTO) 0.5 % (0.0-2.0); EOSINOPHILS # (AUTO) 0.5 K/uL (0-0.4); EOSINOPHILS % (AUTO) 6.5 % (0.0-4.0); HEMATOCRIT 41.8 % (36-52); LYMPHOCYTES # (AUTO) 0.8 K/uL (2.0-11.5); LYMPHOCYTES % (AUTO) 10.7 % (20.5-51.1); MEAN CORPUSCULAR HEMOGLOBIN 31 pg (27-31); MEAN CORPUSCULAR HGB CONC 34 g/dL (33-37); MEAN CORPUSCULAR VOLUME 90.9 fL (80-94); MONOCYTES # (AUTO) 0.8 K/uL (0.8-1.0); MONOCYTES % (AUTO) 9.7 % (1.7-9.3); NEUTROPHILS # (AUTO) 5.7 K/uL (1.8-7.7); NEUTROPHILS % (AUTO) 72.6 % (42.2-75.2); PLATELET COUNT (AUTO) 211 K/uL (140-450); RED CELL DISTRIBUTION WIDTH 13.9 % (11.6-13.7); WHITE BLOOD COUNT (AUTO) 7.9 K/uL (4.8-10.8)
[2023-05-27 13:14] LABS: ANION GAP 11.4 (8-16); CALCIUM 8.6 mg/dL (8.5-10.1); CARBON DIOXIDE 29.3 mmol/L (21-32); CHLORIDE 107 mmol/L (98-107); CREATININE 0.9 mg/dL (0.6-1.3); GLUCOSE 169 mg/dL (74-106); POTASSIUM 3.7 mmol/L (3.5-5.1); SODIUM SERUM 144 mmol/L (136-145); UREA NITROGEN, BLOOD 17 mg/dL (7-18)
[2023-05-27 13:18] LABS: MAGNESIUM 1.8 mg/dL (1.8-2.4); PHOSPHORUS 3.7 mg/dL (2.5-4.9)
[2023-05-28] VITALS (9 sets, daily range): BP systolic 120–155; BP diastolic 47–79; PULSE 45–70; RESP 16–18; TEMP 96.8–98.4; O2SAT 94–98
[2023-05-28] MEDS: HYDROcodone/APAP 5/325 MG 1 TAB TAB PO PRN (09:32)
[2023-05-28 16:06] LABS: BASOPHILS # (AUTO) 0.1 K/uL (0.00-0.22); BASOPHILS % (AUTO) 0.7 % (0.0-2.0); EOSINOPHILS # (AUTO) 0.5 K/uL (0-0.4); EOSINOPHILS % (AUTO) 5.8 % (0.0-4.0); HEMATOCRIT 42.1 % (36-52); HEMOGLOBIN 13.8 g/dL (12.0-18.0); LYMPHOCYTES % (AUTO) 11.7 % (20.5-51.1); MEAN CORPUSCULAR HEMOGLOBIN 30 pg (27-31); MEAN CORPUSCULAR HGB CONC 33 g/dL (33-37); MEAN CORPUSCULAR VOLUME 91.2 fL (80-94); MONOCYTES # (AUTO) 0.8 K/uL (0.8-1.0); MONOCYTES % (AUTO) 9.4 % (1.7-9.3); NEUTROPHILS # (AUTO) 6.1 K/uL (1.8-7.7); NEUTROPHILS % (AUTO) 72.4 % (42.2-75.2); PLATELET COUNT (AUTO) 233 K/uL (140-450); RED BLOOD CELL COUNT(AUTO) 4.62 MIL/uL (4.20-6.10); WHITE BLOOD COUNT (AUTO) 8.4 K/uL (4.8-10.8)
[2023-05-28 16:09] LABS: ANION GAP 13.3 (8-16); CALCIUM 8.5 mg/dL (8.5-10.1); CARBON DIOXIDE 29.2 mmol/L (21-32); CHLORIDE 104 mmol/L (98-107); CREATININE 1.1 mg/dL (0.6-1.3); GLUCOSE 187 mg/dL (74-106); POTASSIUM 4.5 mmol/L (3.5-5.1); SODIUM SERUM 142 mmol/L (136-145); UREA NITROGEN, BLOOD 19 mg/dL (7-18)
[2023-05-28 16:20] LABS: MAGNESIUM 1.9 mg/dL (1.8-2.4)
[2023-05-29] VITALS (8 sets, daily range): BP systolic 134–186; BP diastolic 59–88; PULSE 47–82; RESP 16–20; TEMP 97.5–99.1; O2SAT 92–98
[2023-05-29] MEDS ORDERED: INSULIN LISPRO SLIDING SCALE 100 UNITS/ML VIAL SUBQ PRN (10:50)
[2023-05-29] MEDS ORDERED: DEXTROSE 50% 50 ML SYR IVP PRN (10:50)
[2023-05-29] MEDS ORDERED: ASPI81EC19 PO (11:07)
[2023-05-29] MEDS ORDERED: ATOR20TA40 PO (11:07)
[2023-05-29] MEDS: BLOOD GLUCOSE MONITORING 1 DEV DEV FS SCH (11:30)
[2023-05-29] MEDS: TAMSULOSIN 0.4 MG CAP PO SCH (16:03)
[2023-05-29] MEDS: NIFEdipine 60 MG TABER PO SCH (16:04)
[2023-05-30] VITALS: BP 116/65; PULSE 87; PULSE 89; RESP 17; RESP 18; TEMP 98; O2SAT 97
[2023-05-30 04:00] VITALS: PULSE 89; RESP 17; TEMP 98; O2SAT 95
[2023-05-30 08:00] VITALS: BP 151/75; PULSE 68; PULSE 92; PULSE 96; RESP 19; RESP 20; TEMP 98.3; O2SAT 96; O2SAT 99
[2023-05-30 12:00] VITALS: BP 121/59; PULSE 78; RESP 20; TEMP 98.2; O2SAT 96
[2023-05-30 16:00] VITALS: BP 142/73; PULSE 89; RESP 20; TEMP 98.5; O2SAT 95
[2023-05-30 20:00] VITALS: BP 111/60; PULSE 68; PULSE 76; RESP 19; RESP 20; TEMP 97.6; O2SAT 95; O2SAT 99
[2023-05-31 04:00] VITALS: BP 158/72; PULSE 76; RESP 20; TEMP 96.9; O2SAT 92
[2023-05-31 08:00] VITALS: BP 128/56; PULSE 76; PULSE 78; RESP 18; RESP 20; TEMP 97.5; O2SAT 92; O2SAT 98
[2023-05-31 12:00] VITALS: BP 130/64; PULSE 75; RESP 18; TEMP 97.8; O2SAT 92
[2023-05-31] MEDS ORDERED: BENZOCAINE/MENTHOL 1 LOZ MM PRN (13:40)
[2023-05-31 16:00] VITALS: BP 126/52; PULSE 88; RESP 18; TEMP 97.2; O2SAT 92
== END 2023-05-31 18:15 | DRG 189 ==
LOC: MED 15:19 → MTU 20:58
PROVIDERS: ADMIT Student in an Organized Health Care Education/Training Program; ATTEND Student in an Organized Health Care Education/Training Program
DX: J96.01 Acute respiratory failure with hypoxia (principal); I69.254 Hemiplegia and hemiparesis following other nontraumatic intracranial hemorrhage affecting left non-dominant side; G45.9 Transient cerebral ischemic attack, unspecified; E11.649 Type 2 diabetes mellitus with hypoglycemia without coma; I10 Essential (primary) hypertension; E78.5 Hyperlipidemia, unspecified; Z79.899 Other long term (current) drug therapy; Z86.73 Personal history of transient ischemic attack (TIA), and cerebral infarction without residual deficits
CPT/HCPCS: 36415; 70450; 71045; 71250; 80048; 82948; 83735; 83880; 84100; 84484; 85025; 85610; 85730; 87081; 93005; 97112; 97116; 97530; 99285; J1644; J1815